=== PATIENT | male | born 1985 | race American Indian/Alaskan Native ===

== ENCOUNTER 2021-12-29 04:45 | Emergency (ER) | payer SELFPAY ==
[~2021-12-29] VITALS: Ht 190.5 cm; Wt 90.7 kg
--- NOTE | 2021-12-29 04:45 | NUR ---
ARIAN BOJORQUEZ TO CHAIR Martin
--- NOTE | 2021-12-29 04:46 | NUR ---
Patient BIB Brennan BOJORQUEZ. C/O pre-book x today. Patient reported, had abrasion wound right lower leg and pain and left ankle and need to check. Hx: NONE, Sx: NONE
[2021-12-29 04:49] VITALS: BP 128/89
--- NOTE | 2021-12-29 04:52 | NUR ---
Dr. Lockhart at Chair B to exam patient.
--- NOTE | 2021-12-29 04:52 | NUR ---
ERMD EVALUATING PT AT THIS TIME.
[2021-12-29] MEDS ORDERED: BACITRACIN OINT 500 UNITS/GM PKT TP ONE ×2 (04:56→05:00)
[2021-12-29 05:03] VITALS: BP 128/89
--- NOTE | 2021-12-29 05:03 | NUR ---
Patient will discharge to custody with [place] .
== END 2021-12-29 05:03 ==
LOC: MED 04:45
DX: L97.819 Non-pressure chronic ulcer of other part of right lower leg with unspecified severity (principal); Z02.89 Encounter for other administrative examinations
CPT/HCPCS: 99283